=== PATIENT | female | born 1965 | race Caucasian/White ===

== ENCOUNTER 2017-04-19 00:31 | Observation (INO) ==
--- NOTE | 2017-04-19 00:43 | Emergency Department Note ---
Disposition Clinical Impression: NSTEMI (non-ST elevated myocardial infarction), Cough Disposition: Admitted As Inpatient Condition: Fair General Adult HPI - General Chief complaint: ED Shortness of Breath/Dyspnea Stated complaint: COUGH Time Seen by Provider: 04/19/17 00:37 Source: patient, family Limitations: no limitations - History of Present Illness Pain Scale: 6 - Related Data Allergies Allergy/AdvReac Type Severity Reaction Status Date / Time Amoxicillin [From Augmentin] Allergy Hives Verified 04/19/17 00:32 clavulanic acid Allergy Hives Verified 04/19/17 00:32 [From Augmentin] Past Medical History - Past Medical History Medical history: Reports: diabetes, hyperlipidemia, hypertension, thyroid disease, other Psychiatric history: Reports: anxiety, depression 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 - Social History Smoking Status: Current some day smoker Smokeless Tobacco Status: No Alcohol use: Reports: occasionally Drug use: Reports: none Physical Exam - General Limitations: no limitations General appearance: alert, in no apparent distress Course Vital Signs Temperature 99.4 F 04/19/17 00:33 Pulse Rate 80 04/19/17 00:33 Respiratory Rate 18 04/19/17 00:33 Blood Pressure 159/91 04/19/17 00:33 O2 Sat by Pulse Oximetry 94 04/19/17 00:33 Temperature 99.4 F 04/19/17 00:33 Pulse Rate 63 04/19/17 03:07 Respiratory Rate 15 04/19/17 03:07 Blood Pressure 146/83 04/19/17 03:07 O2 Sat by Pulse Oximetry 94 04/19/17 03:07 Oxygen Delivery Oxygen Delivery Room Air Medical Decision Making - Lab Data Result diagrams: 04/19/17 00:50 04/19/17 00:50 Lab Results 04/19/17 04/19/17 04/19/17 Range/Units 00:50 00:50 00:50 WBC 11.7 H (4.3-11.1) K/mcL RBC 3.85 (3.82-4.97) M/mcL Hgb 11.6 (11.5-15.4) g/dL Hct 36.2 (35.3-44.9) % MCV 94.0 (83.0-100.0) fL MCH 30.1 (28.0-33.3) pg MCHC 32.0 (31.6-35.5) g/dL RDW 12.9 (11.5-14.5) % Plt Count 299 (140-400) K/mcL MPV 11.3 (9.4-12.4) fL Immature Gran % 0.5 (0-4) % Seg Neutrophils % 63.3 % Lymphocytes % 22.1 % Monocytes % 7.3 % Eosinophils % 6.3 % Basophils % 0.5 % Neutrophils # 7.4 (1.6-8.9) K/mcL Lymphocytes # 2.6 (0.6-4.6) K/mcL Monocytes # 0.9 (0.0-1.3) K/mcL Eosinophils # 0.7 H (0.0-0.6) K/mcL Basophils # 0.1 (0.0-0.2) K/mcL PT (9.4-12.1) Seconds INR APTT (26.0-36.0) Seconds Sodium 137 (136-145) mEq/L Potassium 3.6 (3.5-5.1) mEq/L Chloride 102 (98-107) mEq/L Carbon Dioxide 26 (23-29) mEq/L BUN 10 (6-20) mg/dL Creatinine 0.72 (0.60-1.20) mg/dL Est GFR ( Amer) > 60 (> 60) Est GFR (Non-Af Amer) > 60 (> 60) BUN/Creatinine Ratio 14 (6-26) Glucose 196 H (70-105) mg/dL Calculated Osmolality 288 (280-300) Calcium 9.0 (8.6-10.3) mg/dL Total Bilirubin 0.2 L (0.3-1.0) mg/dL AST 19 (13-39) Units/L ALT 20 (7-52) Units/L Alkaline Phosphatase 76 (34-104) Units/L Troponin I 0.09 H* (< 0.04) ng/mL B-Natriuretic Peptide 59 (Less than 100) pg/mL Serum Total Protein 6.5 (6.4-8.9) g/dL Albumin 3.7 (3.5-5.7) g/dL Globulin 2.8 (2.4-3.5) g/dL Albumin/Globulin Ratio 1.3 (1.1-2.2) 03/09/18 Range/Units 00:52 WBC (4.3-11.1) K/mcL RBC (3.82-4.97) M/mcL Hgb (11.5-15.4) g/dL Hct (35.3-44.9) % MCV (83.0-100.0) fL MCH (28.0-33.3) pg MCHC (31.6-35.5) g/dL RDW (11.5-14.5) % Plt Count (140-400) K/mcL MPV (9.4-12.4) fL Immature Gran % (0-4) % Seg Neutrophils % % Lymphocytes % % Monocytes % % Eosinophils % % Basophils % % Neutrophils # (1.6-8.9) K/mcL Lymphocytes # (0.6-4.6) K/mcL Monocytes # (0.0-1.3) K/mcL Eosinophils # (0.0-0.6) K/mcL Basophils # (0.0-0.2) K/mcL PT 10.2 (9.4-12.1) Seconds INR 1.0 APTT 35.1 (26.0-36.0) Seconds Sodium (136-145) mEq/L Potassium (3.5-5.1) mEq/L Chloride (98-107) mEq/L Carbon Dioxide (23-29) mEq/L BUN (6-20) mg/dL Creatinine (0.60-1.20) mg/dL Est GFR ( Amer) (> 60) Est GFR (Non-Af Amer) (> 60) BUN/Creatinine Ratio (6-26) Glucose (70-105) mg/dL Calculated Osmolality (280-300) Calcium (8.6-10.3) mg/dL Total Bilirubin (0.3-1.0) mg/dL AST (13-39) Units/L ALT (7-52) Units/L Alkaline Phosphatase (34-104) Units/L Troponin I (< 0.04) ng/mL B-Natriuretic Peptide (Less than 100) pg/mL Serum Total Protein (6.4-8.9) g/dL Albumin (3.5-5.7) g/dL Globulin (2.4-3.5) g/dL Albumin/Globulin Ratio (1.1-2.2) Critical Care Time Critical Care Time: Yes Total Critical Care Time: 30 Attestation: The high probability of a clinically significant, sudden or life threatening deterioration of the [] system(s) required my full and direct attention, intervention and personal management. The aggregate critical care time was [] minutes. This time is in addition to time spent performing reported procedures but includes the following: [] Data Review and interpretation [] Patient assessment and monitoring of vital signs [] Documentation [] Medication orders and management Attestation Statement - Attestation Attestation: I examined this patient and my medical decision-making was reviewed with the Resident Physician. I agree with the documented findings, disposition and treatment plan as described except to the extent set forth below. [id number] time provided Patient anxious and crying upon arrival. She complains of cough and dyspnea. Triage note and vitals reviewed by me. Patient evaluated in conjunction with the resident physician
[2017-04-19 01:50] LABS: Basophils # 0.1 K/mcL (0.0-0.2); Basophils % 0.5 %; Eosinophils # 0.7 K/mcL (0.0-0.6); Eosinophils % 6.3 %; Hematocrit 36.2 % (35.3-44.9); Hemoglobin 11.6 g/dL (11.5-15.4); Immature Granulocytes % 0.5 % (0-4); Lymphocytes # 2.6 K/mcL (0.6-4.6); Lymphocytes % 22.1 %; Mean Corpuscular Hemoglobin 30.1 pg (28.0-33.3); Mean Platelet Volume 11.3 fL (9.4-12.4); Monocytes # 0.9 K/mcL (0.0-1.3); Monocytes % 7.3 %; Neutrophils # 7.4 K/mcL (1.6-8.9); Platelet Count 299 K/mcL (140-400); Red Blood Count 3.85 M/mcL (3.82-4.97); Red Cell Distribution Width 12.9 % (11.5-14.5); Segmented Neutrophils % 63.3 %
--- NOTE | 2017-04-19 02:00 | Emergency Department Note ---
Disposition Clinical Impression: NSTEMI (non-ST elevated myocardial infarction), Cough Disposition: Admitted As Inpatient Condition: Fair Time of Disposition: 03:05 General Adult HPI - General Chief complaint: ED Shortness of Breath/Dyspnea Stated complaint: COUGH Time Seen by Provider: 04/19/17 00:37 Source: patient, family Mode of arrival: ambulatory Limitations: no limitations Nursing Notes Reviewed: Yes Vital Signs Reviewed: Yes - History of Present Illness HPI Narrative: 51-year-old female with significant past medical history of diabetes, hypertension and hypercholesterolemia presenting to the emergency department complaining of cough and right-sided chest pain. Patient states cough started approximately one week ago. She was seen by her primary care physician who gave her Bactrim. Patient states this evening she started having increased shortness of breath and right-sided chest pain that radiated down her arm. She describes nausea but denies vomiting or diaphoresis. Patient has no significant cardiac history. Has never had cardiac workup. Pain Scale: 6 - Related Data Allergies Allergy/AdvReac Type Severity Reaction Status Date / Time Amoxicillin [From Augmentin] Allergy Hives Verified 04/19/17 00:32 clavulanic acid Allergy Hives Verified 04/19/17 00:32 [From Augmentin] All systems ED: reviewed and negative except as stated. Cardiovascular: Reports: chest pain Respiratory: Reports: cough, dyspnea Past Medical History - Past Medical History Attestation: Yes The following information was validated with the patient. 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 Absent: scleral icterus, conjunctival injection - ENT ENT exam: normal exam, mucous membranes moist - Neck Neck exam: Present: normal inspection, full ROM. Absent: tenderness, meningismus - Chest Chest inspection: Present: normal inspection, symmetric chest wall rise. Absent : tenderness, rash - Respiratory Respiratory exam: Present: normal lung sounds bilaterally. Absent: respiratory distress, wheezes - Cardiovascular Cardiovascular exam: Present: regular rate, normal rhythm, normal heart sounds - Abdominal Exam Abdominal exam: Present: soft, Non-Tender. Absent: distention, guarding, rebound - Extremities Exam Extremities exam: Present: normal inspection, full ROM - Neurological Exam Neurological exam: Present: alert, oriented X3 - Psychiatric Psychiatric exam: Present: normal affect, normal mood - Skin Skin exam: Present: warm, intact Course Course Narrative: 51-year-old female with no significant past medical history presenting to the ED with chief complaint of cough and right-sided chest pain. Patient is alert and oriented 3 in the room and stable vital signs at this time. Patient tearful on examination. Physical exam within normal limits. We will perform chest pain workup including CBC and BMP, troponin, EKG, chest x-ray. Disposition pending results. Patient agrees to this plan. - Reevaluation(s) Reevaluation #1: Patient's troponin elevated at 0.09. All other lab work within normal limits. Chest x-ray shows mild pulmonary edema. We will obtain a PT/INR, PTT and started patient on ACS protocol heparin. Patient is alert and oriented 3 and with stable vital signs at this time. We will plan to admit the patient. I spoke with the hospitalist on-call Dr. Hung who agrees to accept the patient at this time. Vital Signs Temperature 99.4 F 04/19/17 00:33 Pulse Rate 80 04/19/17 00:33 Respiratory Rate 18 04/19/17 00:33 Blood Pressure 159/91 04/19/17 00:33 O2 Sat by Pulse Oximetry 94 04/19/17 00:33 Temperature 99.4 F 04/19/17 00:33 Pulse Rate 70 04/19/17 02:19 Respiratory Rate 17 04/19/17 02:19 Blood Pressure 121/72 04/19/17 02:19 O2 Sat by Pulse Oximetry 92 04/19/17 02:19 Oxygen Delivery Oxygen Delivery Room Air Medical Decision Making - Lab Data Result diagrams: 04/19/17 00:50 04/19/17 00:50 Lab Results 04/19/17 04/19/17 04/19/17 Range/Units 00:50 00:50 00:50 WBC 11.7 H (4.3-11.1) K/mcL RBC 3.85 (3.82-4.97) M/mcL Hgb 11.6 (11.5-15.4) g/dL Hct 36.2 (35.3-44.9) % MCV 94.0 (83.0-100.0) fL MCH 30.1 (28.0-33.3) pg MCHC 32.0 (31.6-35.5) g/dL RDW 12.9 (11.5-14.5) % Plt Count 299 (140-400) K/mcL MPV 11.3 (9.4-12.4) fL Immature Gran % 0.5 (0-4) % Seg Neutrophils % 63.3 % Lymphocytes % 22.1 % Monocytes % 7.3 % Eosinophils % 6.3 % Basophils % 0.5 % Neutrophils # 7.4 (1.6-8.9) K/mcL Lymphocytes # 2.6 (0.6-4.6) K/mcL Monocytes # 0.9 (0.0-1.3) K/mcL Eosinophils # 0.7 H (0.0-0.6) K/mcL Basophils # 0.1 (0.0-0.2) K/mcL PT (9.4-12.1) Seconds INR APTT (26.0-36.0) Seconds Sodium 137 (136-145) mEq/L Potassium 3.6 (3.5-5.1) mEq/L Chloride 102 (98-107) mEq/L Carbon Dioxide 26 (23-29) mEq/L BUN 10 (6-20) mg/dL Creatinine 0.72 (0.60-1.20) mg/dL Est GFR ( Amer) > 60 (> 60) Est GFR (Non-Af Amer) > 60 (> 60) BUN/Creatinine Ratio 14 (6-26) Glucose 196 H (70-105) mg/dL Calculated Osmolality 288 (280-300) Calcium 9.0 (8.6-10.3) mg/dL Total Bilirubin 0.2 L (0.3-1.0) mg/dL AST 19 (13-39) Units/L ALT 20 (7-52) Units/L Alkaline Phosphatase 76 (34-104) Units/L Troponin I 0.09 H* (< 0.04) ng/mL B-Natriuretic Peptide 59 (Less than 100) pg/mL Serum Total Protein 6.5 (6.4-8.9) g/dL Albumin 3.7 (3.5-5.7) g/dL Globulin 2.8 (2.4-3.5) g/dL Albumin/Globulin Ratio 1.3 (1.1-2.2) 04/19/17 Range/Units 00:52 WBC (4.3-11.1) K/mcL RBC (3.82-4.97) M/mcL Hgb (11.5-15.4) g/dL Hct (35.3-44.9) % MCV (83.0-100.0) fL MCH (28.0-33.3) pg MCHC (31.6-35.5) g/dL RDW (11.5-14.5) % Plt Count (140-400) K/mcL MPV (9.4-12.4) fL Immature Gran % (0-4) % Seg Neutrophils % % Lymphocytes % % Monocytes % % Eosinophils % % Basophils % % Neutrophils # (1.6-8.9) K/mcL Lymphocytes # (0.6-4.6) K/mcL Monocytes # (0.0-1.3) K/mcL Eosinophils # (0.0-0.6) K/mcL Basophils # (0.0-0.2) K/mcL PT 10.2 (9.4-12.1) Seconds INR 1.0 APTT 35.1 (26.0-36.0) Seconds Sodium (136-145) mEq/L Potassium (3.5-5.1) mEq/L Chloride (98-107) mEq/L Carbon Dioxide (23-29) mEq/L BUN (6-20) mg/dL Creatinine (0.60-1.20) mg/dL Est GFR ( Amer) (> 60) Est GFR (Non-Af Amer) (> 60) BUN/Creatinine Ratio (6-26) Glucose (70-105) mg/dL Calculated Osmolality (280-300) Calcium (8.6-10.3) mg/dL Total Bilirubin (0.3-1.0) mg/dL AST (13-39) Units/L ALT (7-52) Units/L Alkaline Phosphatase (34-104) Units/L Troponin I (< 0.04) ng/mL B-Natriuretic Peptide (Less than 100) pg/mL Serum Total Protein (6.4-8.9) g/dL Albumin (3.5-5.7) g/dL Globulin (2.4-3.5) g/dL Albumin/Globulin Ratio (1.1-2.2) - EKG Data EKG #1 EKG attestation: Yes I reviewed and interpreted this EKG. EKG results narrative: Sinus rhythm. 72 bpm. GA interval 151, QRS 96, QTC 405. No signs of acute ST segment elevation or ischemia noted.
[2017-04-19 02:13] LABS: Troponin I 0.09 ng/mL (< 0.04)
[2017-04-19] MEDS ORDERED: *HR* Heparin 5,000 UNIT/ML VIAL IVP PRN ×2 (02:13)
[2017-04-19] MEDS ORDERED: *HR* Heparin 5,000 UNIT/ML VIAL IVP ONE (02:13)
[2017-04-19] MEDS ORDERED: Heparin 25,000 UNIT/500 ML D5W 25,000 UNIT/500 ML BAG IVC SCH (02:15)
[2017-04-19 02:17] LABS: Alanine Aminotransferase 20 Units/L (7-52); Albumin 3.7 g/dL (3.5-5.7); Albumin/Globulin Ratio 1.3 (1.1-2.2); Alkaline Phosphatase 76 Units/L (34-104); Aspartate Amino Transferase 19 Units/L (13-39); BUN/Creatinine Ratio 14 (6-26); Bilirubin,Total 0.2 mg/dL (0.3-1.0); Blood Urea Nitrogen 10 mg/dL (6-20); Carbon Dioxide 26 mEq/L (23-29); Chloride 102 mEq/L (98-107); Globulin 2.8 g/dL (2.4-3.5); Glucose 196 mg/dL (70-105); Osmolality,Calculated 288 (280-300); Potassium 3.6 mEq/L (3.5-5.1); Sodium 137 mEq/L (136-145); Total Protein 6.5 g/dL (6.4-8.9); eGFR For African Americans > 60 (> 60); eGFR For Non-African Americans > 60 (> 60)
[2017-04-19 02:31] LABS: Prothrombin Time 10.2 Seconds (9.4-12.1)
[2017-04-19 02:34] LABS: Activated Partial Thrombo Time 35.1 Seconds (26.0-36.0)
[2017-04-19] MEDS ORDERED: Aspirin 325 MG TABLET PO ONE (03:44)
[2017-04-19] MEDS ORDERED: D5% in Water 1,000 ML IVC PRN (05:26)
[2017-04-19] MEDS ORDERED: Naloxone 0.4 MG/ML INJ IVP PRN (05:26)
[2017-04-19] MEDS ORDERED: Ipratropium/Albuterol Neb 3 ML IH PRN (05:26)
[2017-04-19] MEDS ORDERED: Dextrose Gel 15 GM/37.5 ML TUBE PO PRN ×2 (05:26)
[2017-04-19] MEDS ORDERED: *HR* HYDROcodone/Acet 5/325 mg TABLET PO PRN (05:26)
[2017-04-19] MEDS ORDERED: *HR* Dextrose 50 % in Water (Syg) 50 ML SYRINGE IVP PRN (05:26)
--- NOTE | 2017-04-19 05:39 | Internal Med History&Physical ---
Date of Encounter: 04/19/17 Time of Encounter: 04:30 Assessment and Plan (1) LRTI (lower respiratory tract infection) Current visit: Yes Status: Acute 1. Suspect flu-like illness followed by bronchitis vs early pneumonia. 2. Blood cultures ordered per my request. 3. Will check for Influenza. 4. Will start IV antibiotics and aerosols PRN. 5. Oxygen as needed. (2) NSTEMI (non-ST elevated myocardial infarction) Current visit: Yes Status: Acute 1. Patient on heparin gtt. 2. Cycle troponins and EKGs. 3. Will order ECHO and consult Cardiology to assist in cardiac evaluation. 4. Will order CTA chest to rule out PE. (3) Type 2 diabetes mellitus Current visit: Yes Status: Acute 1. Need to verify home meds. 2. Will place on SSI and adjust dosing per glucose readings. 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 Heparin drip as above. Internal Medicine - H&P: HPI Chief complaint: cough; fever; chest pain Admitted From: Emergency Dept Plans for Post Hospital Care: Home History of present illness: Ms. Bustamante is a 51 year old female who presents with complaints of cough, subjective fevers, body aches, nausea, vomiting, headache, and occasional diarrhea for the last 7 days. She then developed chest pain over the last 24 hours, which prompted her to come to the ER. Workup in the ER was negative except for positive troponin and chest x-ray concerning for pulmonary edema. She was admitted to the hospitalist service for concerns of a non-STEMI. Upon my assessment of the patient, she confirmed the above history. Additionally, she had the prototypical appearance of someone who is suffering from a flulike illness. She states she feels like she has had the flu last week. Her biggest complaint is the harsh cough she has been having along with the pleuritic-type chest pain, fatigue, body aches, and lack of sleep. She is diabetic and has history of hypertension and high cholesterol. She therefore has risk factors for cardiac disease. However, her history suggests more of a viral and/or bronchopneumonic process now. Patient is also a smoker, but patient denies any history of chronic lung disease. Patient has yet to have blood cultures obtained as I requested from the ER. Additionally, I will order influenza testing as well. Nonethelessl, we will continue with cardiac workup and evaluation. Patient denies any history of blood clots in legs or chest. However, she does give a significant history of pleuritic-type chest pain as well as with deep inspiration. I suspect this is pleurisy from either flulike illness or pneumonia. Nonetheless, I am going to scan her chest to rule out PE. Past Med Surg Social Fam HX - Past Medical History Attestation: Yes The following information was validated with the patient. Source: patient, old records reviewed Medical history: diabetes, hyperlipidemia, hypertension, thyroid disease, other Psychiatric history: anxiety, depression - Past Surgical History Surgical History: no surgical history - Social History Smoking Status: Current some day smoker Smokeless Tobacco Status: No Alcohol use: occasionally Drug use: none Current living situation: Home, With Family Activity Level: Independent ambulation Recent Out of Country Travel Within the Last 8 Weeks: No - Family History Mother Living Status: Still Living Hx Family Cardiac Disorders: Yes Hx Family Respiratory Disorders: Yes Father Living Status: Internal Medicine - H&P: Meds 3 Allergy/AdvReac Type Severity Reaction Status Date / Time Amoxicillin [From Augmentin] Allergy Hives Verified 04/19/17 00:32 clavulanic acid Allergy Hives Verified 04/19/17 00:32 [From Augmentin] - Constitutional Constitutional: chills, fatigue, fever(s), lethargy, no night sweats - EENT Eyes: no blurry vision, no change in vision Ears: no ear pain, no tinnitus Nose, mouth and throat: nasal congestion, sore throat, no sinus pressure - Cardiovascular Cardiovascular ROS IM: chest pain (pleuritic), dyspnea, dyspnea on exertion, no edema, no palpitations, no paroxysmal nocturnal dyspnea, no syncope - Respiratory Respiratory: cough, dyspnea, dyspnea on exertion, wheezing, pain on inspiration , chest congestion, pain with cough, no hemoptysis, no excessive phlegm production, no change in phlegm color - Gastrointestinal Gastrointestinal: diarrhea, nausea, vomiting, no abdominal pain, no hematemesis , no hematochezia, no melena - Genitourinary Genitourinary: no dysuria, no flank pain, no hematuria - Musculoskeletal Musculoskeletal ROS IM: muscle cramps, myalgias, no arthralgias, no back pain - Integumentary Integumentary IM: no rash, no jaundice - Neurological Neurological ROS: no dizziness, no focal weakness, no frequent falls, no headache(s) - Psychiatric Psychiatric: no anxiety, no depression - Endocrine Endocrine IM: no polydipsia, no polyuria - Hematologic/Lymphatic Hematologic/Lymphatic: no easy bruising, no lymphadenopathy - Allergic/Immunologic Allergic/Immunologic: wheezing, no GI upset with certain foods - Constitutional Vitals: Temp Pulse Resp BP Pulse Ox 98.5 F 58 18 115/75 94 04/19/17 04:24 04/19/17 04:24 04/19/17 04:24 04/19/17 04:24 04/19/17 04:24 General appearance: Present: cooperative, mild distress, A&O X 3, pleasant, answers questions appropriately - Head Head exam: Present: normal inspection - Eye Eye exam: Present: EOMI, PERRL. Absent: scleral icterus Pupils: Present: normal accommodation - ENT ENT exam: Present: mucous membranes dry, normal exam Additional comments: congested nares - Neck Neck exam general surgery: Present: full ROM, supple. Absent: lymphadenopathy, tenderness, nuchal rigidity, thyromegaly - Respiratory Respiratory exam: Present: accessory muscle use, chest wall tenderness, decreased breath sounds, prolonged expiratory phase, respiratory distress, rhonchi, wheezes (rare), tachypnea. Absent: rales, stridor - Cardiovascular Cardiovascular exam: Present: distant heart sounds, +S1, +S2. Absent: diastolic murmur, systolic murmur - GI/Abdominal GI/Abdominal exam: Present: normal bowel sounds, soft. Absent: hepatomegaly, mass, splenomegaly, tenderness - Extremities Exam Extremities exam: Present: full ROM, normal capillary refill, warm, radial pulses palpable and symmetrical. Absent: calf tenderness, joint swelling, pedal edema, tenderness - Back Exam Back exam: Present: normal inspection. Absent: CVA tenderness (L), CVA tenderness (R) - Neurological Exam Neurological exam: Present: alert, CN II-XII intact, oriented X3, no focal deficits, strengths equal and symetr throughout - Psychiatric Psychiatric exam: Present: normal affect, normal mood - Skin Skin exam: Present: dry, warm. Absent: rash Internal Med - H&P Results - Labs CBC & Chem 7: 04/19/17 00:50 04/19/17 00:50 - EKG Data -: EKG Interpreted by Myself - EKG Data Prior EKG available for review: no EKG comments: 04/19/17 05:46 NSR; no acute changes - Diagnostic Studies Chest x-ray Status: image reviewed by me (negative in my opinin; disagree withradilogy's rading of pulmonary edema) - VTE Reasons for not Prescribing Prophylaxis: Not indicated-Anticoagulated or INR therapeutic
[2017-04-19] MEDS: 0.9 % Sodium Chloride w KCl 20 MEQ/1,000 ML MLS IVC SCH ×2 (06:28→16:53)
[2017-04-19] MEDS: Insulin LISPRO 300 UNITS/3 ML VIAL SQ SCH ×3 (08:22→17:40)
[2017-04-19 09:32] LABS: Hemoglobin A1C 7.3 %
[2017-04-19] MEDS: Benzonatate 100 MG CAPSULE PO PRN ×3 (09:40→21:22)
[2017-04-19 09:56] LABS: Adenovirus Not Detected (Not Detect); Bordetella Pertussis Not Detected (Not Detect); Chlamydophila pneumoniae Not Detected (Not Detect); Coronavirus 229E Not Detected (Not Detect); Coronavirus HKU1 ***DETECTED*** (Not Detect); Coronavirus NL63 Not Detected (Not Detect); Coronavirus OC43 Not Detected (Not Detect); Human Metapneumovirus Not Detected (Not Detect); Human Rhinovirus/Enterovirus ***DETECTED*** (Not Detect); Influenza A Subtype 2009 H1 Not Detected (Not Detect); Influenza A Untypeable Not Detected (Not Detect); Influenza B Not Detected (Not Detect); Mycoplasma pneumoniae Not Detected (Not Detect); Parainfluenza Virus 1 Not Detected (Not Detect); Parainfluenza Virus 2 Not Detected (Not Detect); Parainfluenza Virus 3 Not Detected (Not Detect); Parainfluenza Virus 4 Not Detected (Not Detect); Respiratory Syncytial Virus Not Detected (Not Detect)
--- NOTE | 2017-04-19 11:17 | Cardiology Consult Note ---
<Melissa Vanegas - Last Filed: 04/19/17 11:20> Date of Encounter: 04/19/17 Time of Encounter: 10:00 Assessment and Plan (1) LRTI (lower respiratory tract infection) Current Visit: Yes Status: Acute Per cardiology: -Admitted with respiratory tract infection vs. possible pneumonia. -Management per primary service. (2) Elevated troponin Current Visit: Yes Status: Acute Per cardiology: -Troponin 0.09, 0.09 in the setting of respiratory infection vs pneumonia. -Admits to chest pain while coughing. -Denies chest pain at rest, denies exertional chest pain. -ECG with no acute ischemic changes. -TTE pending -ON heparin drip, -DO not suspect NSTEMI, suspect demand ischemia related to above. NO cardiac rehab consult warranted. -WIll start asa, beta pamela, statin (takes pravastatin at home sub to simvastatin inpatient). -Will stop heparin drip. -Anticipate cardiology sign off if no significant findings on TTE. Discussion w patient/family: The assessment and plan as outlined above was discussed with the patient who expressed understanding and agreement. All questions were answered. Thank you for involving us in the care of your patient. Please call with any questions. Discussed and reviewed with Dr.John Winter. History of Present Illness Consult date: 04/19/17 Requesting physician: Marvel Hung Consult reason: elevated troponin Chief complaint: cough, shortness of breath History of present illness: Ms. Bustamante is a 51 year old female with a relevant past medical history of DM, HTN , hyperlipidemia. Patient presented to [facility] with complaints of cough and shortness of breath. Patient also reported chest pain while coughing. Denies exertional chest pain. Patient reports prior to onset of cough, did not have any chest pain, shortness of breath, or fatigue. Denies current chest pain. Past Med Surg Social Fam HX - Past Medical History Attestation: Yes The following information was validated with the patient. Source: patient, old records reviewed Medical history: diabetes, hyperlipidemia, hypertension, thyroid disease, other Psychiatric history: anxiety, depression - Past Surgical History Surgical History: no surgical history - Social History Smoking Status: Current some day smoker Smokeless Tobacco Status: No Alcohol use: occasionally Drug use: none - Family History Mother Living Status: Still Living Hx Family Cardiac Disorders: Yes Hx Family Respiratory Disorders: Yes Father Living Status: Medications and Allergies Aspirin [Lo-Dose Aspirin EC] 81 mg PO DAILY 04/19/17 [History] Citalopram [CeleXA] 1.5 tab PO DAILY 04/19/17 [History] Gabapentin [Neurontin] 600 mg PO DAILY 04/19/17 [History] Levothyroxine [Synthroid] 50 mcg PO QAM 04/19/17 [History] Lisinopril-HCTZ 20-12.5 [Prinzide 20-12.5] 1 tab PO DAILY 04/19/17 [History] Metformin HCl [Glucophage] 1,000 mg PO BID 04/19/17 [History] Multivitamin [One Daily Multivitamin] 1 tab PO DAILY 04/19/17 [History] Omeprazole [PriLOSEC] 20 mg PO DAILY 04/19/17 [History] Pravastatin Sodium [Pravachol] 80 mg PO HS 04/19/17 [History] Sulfamethoxazole/Trimeth DS [Bactrim DS] 1 tab PO BID 04/19/17 [History] clonazePAM [Klonopin] 0.5 mg PO BID PRN 04/19/17 [History] glipiZIDE [Glipizide] 10 mg PO DAILY 04/19/17 [History] 3 Allergy/AdvReac Type Severity Reaction Status Date / Time Amoxicillin [From Augmentin] Allergy Hives Verified 04/19/17 11:37 clavulanic acid Allergy Hives Verified 04/19/17 11:37 [From Augmentin] All Systems Review: The remainder of the systems were reviewed and are negative - Cardiovascular Cardiovascular: as per HPI, dyspnea at rest, dyspnea on exertion - Respiratory Respiratory: cough Physical Examination Vital Signs, Last 4 Hours Temp Pulse Resp BP Pulse Ox 04/19/17 11:05 98.1 F 66 16 131/81 92 04/19/17 09:50 93 04/19/17 08:06 97.4 F L 62 16 113/75 93 General: Conversant, No Apparent Distress HEENT: Atraumatic, Normocephaly, Mucus Membranes Moist Neck: No JVD, Normal carotid pulses Cardiac: Reg Rate and Rhythm, Normal S1 and S2, No Murmur Lungs: Other (Lung sounds diminished throughout. ) Neuro: Alert and responsive, No focal deficits noted Abdomen: Soft, Non-Tender Skin: No rashes noted on visualized skin Musculoskeletal: No Chest Wall Tenderness Extremities: No Clubbing, No Cyanosis, No Edema, Normal Pulses Results 04/19/17 00:50 04/19/17 00:50 Lab Results Impressions Chest X-Ray 04/19/17 00:53 IMPRESSION: Pulmonary edema. D/ / García Roberts MD / García Roberts MD Interpreting Provider: García Roberts MD Chest CTA 04/19/17 08:30 IMPRESSION: Negative CTA for pulmonary embolus. Nodular areas of consolidation/airspace disease predominantly in the right upper and middle lobes most compatible with an inflammatory/infectious process/pneumonia with some benign reactive mediastinal and hilar lymph nodes. Follow-up chest radiographs to document resolution of disease are warranted. Bilateral adrenal masses largest seen on the right measures 4.1 cm likely reflecting benign adrenal adenomas. Nonemergent MRI is recommended for complete assessment. Fatty liver. D/ / 04/19/2017 09:06:25 Bryan Vigil MD / [facility] Interpreting Provider: Bryan Vigil MD Active Medications Acetaminophen (Tylenol) 650 mg PO Q6HR PRN PRN Reason: Mild Pain/Fever Stop: 10/19/17 05:27 Hydrocodone Bitart/Acetaminophen ([place] 5-325 Mg) 1 tab PO Q6HR PRN PRN Reason: Moderate Pain Stop: 10/19/17 05:27 Albuterol/Ipratropium (Duoneb) 3 ml IH [id number] PRN PRN Reason: Shortness Of Breath/Wheezing Stop: 10/19/17 05:27 Aspirin (Aspirin Ec) 81 mg PO DAILY RC Stop: 10/19/17 11:31 Benzonatate (Tessalon) 100 mg PO TID PRN PRN Reason: Cough Stop: 10/19/17 09:34 Last Admin: 04/19/17 09:40 Dose: 100 mg Dextrose/Water (Dextrose 50% (Syg)) 25 ml IVP AD PRN PRN Reason: Hypoglycemia Stop: 10/19/17 05:27 Glucagon (Glucagen) 1 mg IM ONCE PRN PRN Reason: Hypoglycemia Stop: 10/19/17 05:27 Glucose (Gluctose) 15 gm PO ONCE PRN PRN Reason: Hypoglycemia Stop: 10/19/17 05:27 Glucose (Gluctose) 30 gm PO ONCE PRN PRN Reason: Hypoglycemia Stop: 10/19/17 05:27 Heparin Sodium (Porcine) (Heparin) 4,000 unit IVP Q6HR PRN PRN Reason: SEE COMMENTS Stop: 10/19/17 02:14 Heparin Sodium (Porcine) (Heparin) 2,000 unit IVP Q6H PRN PRN Reason: SEE COMMENTS Stop: 10/19/17 02:14 Last Admin: 04/19/17 10:00 Dose: 2,000 unit Heparin Sodium/Dextrose (Heparin 25,000 Unit/500 Ml D5w) 25,000 unit in 500 mls @ 20.031 mls/hr IVC .Q24H RC; 9.2 UNIT/KG/HR PRN Reason: Protocol Stop: 10/19/17 02:16 Last Titration: 04/19/17 10:01 Dose: 11.02 unit/kg/hr, 24 mls/hr Potassium Chloride/Sodium Chloride (Kcl 20 Meq In 0.9% Sodium Chloride) 20 meq in 1,000 mls @ 100 mls/hr IVC .Q10H RC Stop: 04/20/17 01:29 Last Admin: 04/19/17 06:28 Dose: 100 mls/hr Dextrose (Dextrose 5%) 1,000 mls @ 100 mls/hr IVC .Q10H PRN PRN Reason: HYPOGLYCEMIA Stop: 10/19/17 05:27 Levofloxacin/Dextrose (Levaquin Premix 750mg/150 Ml) 750 mg in 150 mls @ 100 mls/hr IVPB DAILY RC PRN Reason: Protocol Stop: 10/19/17 09:01 Insulin Human Lispro (Humalog) 0 units SQ TIDAC RC PRN Reason: Protocol Stop: 10/19/17 07:31 Last Admin: 04/19/17 08:22 Dose: Not Given Insulin Human Lispro (Humalog) 0 units SQ HS RC PRN Reason: Protocol Stop: 10/19/17 21:01 Metoprolol Succinate (Toprol Xl) 12.5 mg PO DAILY [facility] Stop: 10/19/17 11:31 Naloxone HCl (Narcan) 0.4 mg IVP Q2MIN PRN PRN Reason: SEE COMMENTS Stop: 10/19/17 05:27 Simvastatin (Zocor) 40 mg PO HS RC PRN Reason: Protocol Stop: 10/19/17 21:01 Laboratory Tests 04/19/17 04/19/17 04/19/17 00:50 00:50 06:22 WBC 11.7 H Hgb 11.6 Creatinine 0.72 Troponin I 0.09 H* 0.09 H* - Imaging and Cardiology Chest Xray: report reviewed Echo: pending - EKG Interpretation EKG results cardiology: personally reviewed (ECG with SR, HR 72.), other ( Telemetry reviewed with average HR previous 12 hours noted to be 64, SR. PVCs and PACs noted.) Consult Discharge Plan - Plan Referrals: Miguelito Cole MD [Primary Care Provider] - <Mario Winter - Last Filed: 04/19/17 13:07> Date of Encounter: 04/19/17 - Attending Attestation I have personally performed a face to face evaluation on this patient. I have reviewed and agree with the care plan. History and Exam by me shows: Abnormal trop. in setting of resp. infection. Doubt ACS. Primary treatment is of the infection. Assessment and Plan Discussion w patient/family: The assessment and plan as outlined above was discussed with the patient and/or family members who expressed understanding and agreement. All questions were answered. Thank you for involving us in the care of your patient. Please call with any questions. History of Present Illness History of present illness: Ms. Bustamante is a 51 year old female All Systems Review: The remainder of the systems were reviewed and are negative Physical Examination Vital Signs, Last 4 Hours Temp Pulse Resp BP Pulse Ox 04/19/17 11:05 98.1 F 66 16 131/81 92 04/19/17 09:50 93 Results 04/19/17 00:50 04/19/17 00:50 Lab Results 04/19/17 04/19/17 06:22 09:07 APTT 45.3 H Troponin I 0.09 H*
[2017-04-19] MEDS: Levofloxacin 750 MG/150 ML 750 MG/150 ML BAG IVPB SCH (11:55)
[2017-04-19] MEDS: Aspirin Enteric Coated 81 MG Tablet PO SCH (13:17)
[2017-04-19] MEDS: Metoprolol XL (24 HR) Succ 25 MG TAB.ER.24H PO SCH (13:17)
[2017-04-19] MEDS: Acetaminophen 325 MG TABLET PO PRN (15:15)
[2017-04-19] MEDS ORDERED: Insulin LISPRO 300 UNITS/3 ML VIAL SQ SCH (21:00)
[2017-04-20 04:14] LABS: Basophils # 0.1 K/mcL (0.0-0.2); Basophils % 0.9 %; Eosinophils # 0.7 K/mcL (0.0-0.6); Eosinophils % 8.5 %; Hematocrit 34.6 % (35.3-44.9); Immature Granulocytes % 0.4 % (0-4); Lymphocytes # 2.3 K/mcL (0.6-4.6); Lymphocytes % 28.8 %; Mean Corpuscular HGB Conc 31.8 g/dL (31.6-35.5); Mean Corpuscular Hemoglobin 30.1 pg (28.0-33.3); Mean Corpuscular Volume 94.8 fL (83.0-100.0); Mean Platelet Volume 11.1 fL (9.4-12.4); Monocytes # 0.8 K/mcL (0.0-1.3); Monocytes % 10.4 %; Neutrophils # 4.1 K/mcL (1.6-8.9); Platelet Count 277 K/mcL (140-400); Red Blood Count 3.65 M/mcL (3.82-4.97); Red Cell Distribution Width 13.2 % (11.5-14.5)
[2017-04-20 04:45] LABS: Alanine Aminotransferase 16 Units/L (7-52); Albumin 3.4 g/dL (3.5-5.7); Albumin/Globulin Ratio 1.4 (1.1-2.2); Alkaline Phosphatase 63 Units/L (34-104); Aspartate Amino Transferase 14 Units/L (13-39); BUN/Creatinine Ratio 15 (6-26); Bilirubin,Total 0.2 mg/dL (0.3-1.0); Blood Urea Nitrogen 12 mg/dL (6-20); Calcium 8.5 mg/dL (8.6-10.3); Carbon Dioxide 27 mEq/L (23-29); Chloride 107 mEq/L (98-107); Chol/HDL Ratio 5.9 (0-4.9); Cholesterol 199 mg/dL (< 200); Globulin 2.5 g/dL (2.4-3.5); Glucose 108 mg/dL (70-105); HDL Cholesterol 34 mg/dL (40-59); LDL Cholesterol,Calculated 124 mg/dL (0-99); Osmolality,Calculated 288 (280-300); Potassium 4.5 mEq/L (3.5-5.1); Sodium 139 mEq/L (136-145); Total Protein 5.9 g/dL (6.4-8.9); Triglycerides 204 mg/dL (< 150); eGFR For African Americans > 60 (> 60); eGFR For Non-African Americans > 60 (> 60)
[2017-04-20] MEDS: Acetaminophen 325 MG TABLET PO PRN ×2 (04:58→09:56)
[2017-04-20] MEDS: Benzonatate 100 MG CAPSULE PO PRN (04:58)
[2017-04-20] MEDS: Insulin LISPRO 300 UNITS/3 ML VIAL SQ SCH ×2 (09:46→11:55)
[2017-04-20] MEDS: Aspirin Enteric Coated 81 MG Tablet PO SCH (09:54)
[2017-04-20] MEDS: Metoprolol XL (24 HR) Succ 25 MG TAB.ER.24H PO SCH (09:54)
[2017-04-20] MEDS: Levofloxacin 750 MG/150 ML 750 MG/150 ML BAG IVPB SCH (09:55)
--- NOTE | 2017-04-20 10:48 | Cardiology Progress Note ---
Date of Encounter: 04/20/17 Time of Encounter: 10:45 Assessment and Plan (1) Elevated troponin Current Visit: Yes Status: Acute Per cardiology: -Troponin 0.09, 0.09, 0.09 in the setting of respiratory infection vs pneumonia. -Of note, positive for coronavirus HKU1 and entero/rhino. -Admits to chest pain while coughing. Denies chest pain overnight. -Denies chest pain at rest, denies exertional chest pain. -ECG with no acute ischemic changes. -TTE pending. -Do not suspect NSTEMI, suspect demand ischemia related to above. NO cardiac rehab consult warranted. -Continue asa, beta pamela, statin (takes pravastatin at home sub to simvastatin inpatient). -TTE still pending. Cardiology signing off. Reconsult PRN or if significant findings on TTE. No outpt follow-up warranted at this time. (2) LRTI (lower respiratory tract infection) Current Visit: Yes Status: Acute Per cardiology: -Admitted with respiratory tract infection vs. possible pneumonia. -Management per primary service. Discussion w patient/family: The assessment and plan as outlined above was discussed with the patient and/or family members who expressed understanding and agreement. All questions were answered. Thank you for involving us in the care of your patient. Please call with any questions. I will discuss all the above with Dr. Mario Winter and make changes as necessary. Subjective Principal diagnosis: LRTI Interval history: Pt denies chest pain overnight. Echo pending. Objective Vital Signs, Last 4 Hours Temp Pulse Resp BP Pulse Ox 04/20/17 10:04 93 04/20/17 08:11 97.8 F 60 16 123/79 93 Vital Signs Temp Pulse Resp BP Pulse Ox 04/20/17 10:04 93 04/20/17 08:11 97.8 F 60 16 123/79 93 04/20/17 03:56 97.9 F 66 16 121/80 93 04/19/17 23:26 98.1 F 70 18 126/79 95 04/19/17 22:36 17 98 04/19/17 18:21 98.4 F 59 18 122/74 96 04/19/17 15:14 97.4 F L 60 16 142/80 93 04/19/17 11:05 98.1 F 66 16 131/81 92 Intake and Output 04/19/17 04/20/17 04/20/17 23:59 07:59 15:59 Intake Total 1600 / 1600 360 / 360 Output Total 1400 / 1400 Balance 1600 / 1600 -1400 / -1400 360 / 360 Intake: IV Fluids 1000 / 1000 KCl 20 mEq in 0.9% Sodium 1000 / 1000 Chloride 20 meq In 1,000 ml @ 100 mls/hr IVC .Q10H RC Rx#: [id number] Oral 600 / 600 360 / 360 Output: Urine 1400 / 1400 Other: Meal Breakfast Percent of Meal Consumed 100% # Voids 2 6 Weight 109 kg Blood Glucose* 185 118 Patient Weight 04/20/17 23:59 Weight 109 kg General: Conversant, No Apparent Distress HEENT: Atraumatic, Normocephaly, Mucus Membranes Moist Neck: No JVD, Normal carotid pulses Cardiac: Reg Rate and Rhythm, Normal S1 and S2, No Murmur Lungs: Other (diminished) Neuro: Alert and responsive, No focal deficits noted Abdomen: Soft, Non-Tender Skin: No rashes noted on visualized skin Musculoskeletal: No Chest Wall Tenderness Extremities: No Clubbing, No Cyanosis, No Edema, Normal Pulses Results 04/20/17 03:34 04/20/17 03:34 Lab Results 04/19/17 04/20/17 04/20/17 13:24 03:34 03:34 WBC 8.1 Hgb 11.0 L Hct 34.6 L Plt Count 277 Sodium 139 Potassium 4.5 Chloride 107 Carbon Dioxide 27 BUN 12 Creatinine 0.79 Glucose 108 H Calcium 8.5 L Magnesium 2.0 Total Bilirubin 0.2 L AST 14 ALT 16 Alkaline Phosphatase 63 Troponin I 0.09 H* Short CBC 04/20/17 Range/Units 03:34 WBC 8.1 (4.3-11.1) K/mcL Hgb 11.0 L (11.5-15.4) g/dL Hct 34.6 L (35.3-44.9) % Plt Count 277 (140-400) K/mcL Neutrophils # 4.1 (1.6-8.9) K/mcL BMP 04/20/17 Range/Units 03:34 Sodium 139 (136-145) mEq/L Potassium 4.5 (3.5-5.1) mEq/L Chloride 107 (98-107) mEq/L Carbon Dioxide 27 (23-29) mEq/L BUN 12 (6-20) mg/dL Creatinine 0.79 (0.60-1.20) mg/dL Glucose 108 H (70-105) mg/dL Calcium 8.5 L (8.6-10.3) mg/dL Cardiac Enzymes 04/19/17 Range/Units 13:24 Troponin I 0.09 H* (< 0.04) ng/mL Liver Function 04/20/17 Range/Units 03:34 Total Bilirubin 0.2 L (0.3-1.0) mg/dL AST 14 (13-39) Units/L ALT 16 (7-52) Units/L Alkaline Phosphatase 63 (34-104) Units/L Albumin 3.4 L (3.5-5.7) g/dL Active Medications Acetaminophen (Tylenol) 650 mg PO Q6HR PRN PRN Reason: Mild Pain/Fever Stop: 10/19/17 05:27 Last Admin: 04/20/17 09:56 Dose: 650 mg Hydrocodone Bitart/Acetaminophen ([place] 5-325 Mg) 1 tab PO Q6HR PRN PRN Reason: Moderate Pain Stop: 10/19/17 05:27 Last Admin: 04/19/17 21:23 Dose: 1 tab Albuterol/Ipratropium (Duoneb) 3 ml IH [id number] PRN PRN Reason: Shortness Of Breath/Wheezing Stop: 10/19/17 05:27 Last Admin: 04/19/17 22:36 Dose: 3 ml Aspirin (Aspirin Ec) 81 mg PO DAILY RC Stop: 10/19/17 11:31 Last Admin: 04/20/17 09:54 Dose: 81 mg Benzonatate (Tessalon) 100 mg PO TID PRN PRN Reason: Cough Stop: 10/19/17 09:34 Last Admin: 04/20/17 04:58 Dose: 100 mg Dextrose/Water (Dextrose 50% (Syg)) 25 ml IVP AD PRN PRN Reason: Hypoglycemia Stop: 10/19/17 05:27 Glucagon (Glucagen) 1 mg IM ONCE PRN PRN Reason: Hypoglycemia Stop: 10/19/17 05:27 Glucose (Gluctose) 15 gm PO ONCE PRN PRN Reason: Hypoglycemia Stop: 10/19/17 05:27 Glucose (Gluctose) 30 gm PO ONCE PRN PRN Reason: Hypoglycemia Stop: 10/19/17 05:27 Dextrose (Dextrose 5%) 1,000 mls @ 100 mls/hr IVC .Q10H PRN PRN Reason: HYPOGLYCEMIA Stop: 10/19/17 05:27 Levofloxacin/Dextrose (Levaquin Premix 750mg/150 Ml) 750 mg in 150 mls @ 100 mls/hr IVPB DAILY RC PRN Reason: Protocol Stop: 10/19/17 09:01 Last Admin: 04/20/17 09:55 Dose: 100 mls/hr Insulin Human Lispro (Humalog) 0 units SQ TIDAC RC PRN Reason: Protocol Stop: 10/19/17 07:31 Last Admin: 04/20/17 09:46 Dose: Not Given Insulin Human Lispro (Humalog) 0 units SQ HS RC PRN Reason: Protocol Stop: 10/19/17 21:01 Last Admin: 04/19/17 20:50 Dose: Not Given Metoprolol Succinate (Toprol Xl) 12.5 mg PO DAILY RC Stop: 10/19/17 11:31 Last Admin: 04/20/17 09:54 Dose: 12.5 mg Naloxone HCl (Narcan) 0.4 mg IVP Q2MIN PRN PRN Reason: SEE COMMENTS Stop: 10/19/17 05:27 Simvastatin (Zocor) 40 mg PO HS RC PRN Reason: Protocol Stop: 10/19/17 21:01 Last Admin: 04/19/17 21:22 Dose: 40 mg - Imaging and Cardiology Echo: pending - EKG Interpretation EKG results cardiology: other (12 hr tele AVG HR 63, SR, no significant pauses or arrhythmias) - VTE Reasons for not Prescribing Prophylaxis: Not indicated-Anticoagulated or INR therapeutic Consult Discharge Plan - Plan Referrals: Miguelito Cole MD [Primary Care Provider] -
[2017-04-20 11:07] VITALS: BP 117/77
--- NOTE | 2017-04-20 11:14 | Discharge Summary ---
- NOTES TO OUTPATIENT PROVIDER Notes to Outpatient Provider: Monitor blood sugars. Date of Encounter: 04/20/17 Time of Encounter: 09:45 - Discharge Diagnosis (1) Elevated troponin Priority: Primary Status: Acute (2) Pneumonia Priority: Primary Status: Acute Qualifiers: Pneumonia type: due to unspecified organism Laterality: right Lung location: unspecified part of lung Qualified Code(s): J18.9 - Pneumonia, unspecified organism (3) Viral bronchitis Priority: Primary Status: Acute (4) Essential hypertension Priority: Secondary Status: Chronic (5) Hypothyroidism Priority: Secondary Status: Chronic Qualifiers: Hypothyroidism type: unspecified Qualified Code(s): E03.9 - Hypothyroidism , unspecified (6) Hyperlipidemia Priority: Secondary Status: Chronic Qualifiers: Hyperlipidemia type: unspecified Qualified Code(s): E78.5 - Hyperlipidemia , unspecified (7) Depression Priority: Secondary Status: Chronic Qualifiers: Depression Type: unspecified Qualified Code(s): F32.9 - Major depressive disorder, single episode, unspecified (8) Tobacco abuse Priority: Secondary Status: Chronic (9) Type 2 diabetes mellitus Priority: Secondary Status: Chronic Qualifiers: Diabetes mellitus mcc insulin use: without mcc use Diabetes mellitus complication status: with hyperglycemia Qualified Code(s): E11.65 - Type 2 diabetes mellitus with hyperglycemia Hospital course: Ms. Bustamante is a 51 year old female with the above medical problems who was admitted with flulike symptoms, cough and chest pain. Chest x-ray showed changes suggestive of pulmonary edema. She was started on empiric IV antibiotics, breathing treatments and supplemental oxygen. She was also noted to have elevated troponin of 0.09 and she was started on anticoagulation with IV heparin drip. CT angiogram of chest was done, which showed no evidence of pulmonary embolism but did show right-sided pneumonia. Blood cultures remained negative, she did not not need supplemental oxygen, continued on IV Levaquin. Cardiology was consulted for elevated troponin, which is thought to be demand ischemia due to underlying infection. Serial troponins remained flat at 0.09. Heparin drip was discontinued. Transthoracic echocardiogram has been ordered, pending which the patient can be discharged if it is normal. She is otherwise medically stable and wishes to be discharged home today. She is noted to have slightly elevated blood sugars, I encouraged to follow up with primary care provider. Hemoglobin A1c noted to be 7.3%. Discharge discussed with: patient - Time Spent with Patient Total time spent providing and/or coordinating discharge services: Greater than 30 minutes (45 min) - Discharge Medications Prescriptions: Benzonatate [Tessalon] 100 mg PO TID PRN #20 capsule PRN Reason: Cough Levofloxacin [Levaquin] 750 mg PO DAILY 5 Days #5 tablet Home Medications: Aspirin [Lo-Dose Aspirin EC] 81 mg PO DAILY 04/19/17 [History] Citalopram [CeleXA] 1.5 tab PO DAILY 04/19/17 [History] Gabapentin [Neurontin] 600 mg PO DAILY 04/19/17 [History] Levothyroxine [Synthroid] 50 mcg PO QAM 04/19/17 [History] Lisinopril-HCTZ 20-12.5 [Prinzide 20-12.5] 1 tab PO DAILY 04/19/17 [History] Metformin HCl [Glucophage] 1,000 mg PO BID 04/19/17 [History] Multivitamin [One Daily Multivitamin] 1 tab PO DAILY 04/19/17 [History] Omeprazole [PriLOSEC] 20 mg PO DAILY 04/19/17 [History] Pravastatin Sodium [Pravachol] 80 mg PO HS 04/19/17 [History] clonazePAM [Klonopin] 0.5 mg PO BID PRN 04/19/17 [History] glipiZIDE [Glipizide] 10 mg PO DAILY 04/19/17 [History] Benzonatate [Tessalon] 100 mg PO TID PRN #20 capsule 04/20/17 [Rx] Levofloxacin [Levaquin] 750 mg PO DAILY 5 Days #5 tablet 04/20/17 [Rx] Allergies/Adverse Reactions: 3 Allergy/AdvReac Type Severity Reaction Status Date / Time Amoxicillin [From Augmentin] Allergy Hives Verified 04/19/17 11:37 clavulanic acid Allergy Hives Verified 04/19/17 11:37 [From Augmentin] Date of admission: 04/19/17 02:51 Primary care physician: Miguelito Cole MD Consults: 04/19/17 05:30 Consult to Physician [CONS] Routine Consulting Provider: Brenda Denny Reason for Consult: elevated troponin Call Completed: No Discharging clinician: Cris Seaman Anticipated date of discharge: 04/20/17 - Constitutional Vitals: Temp Pulse Resp BP Pulse Ox 97.8 F 56 16 117/77 93 04/20/17 11:00 04/20/17 11:00 04/20/17 11:00 04/20/17 11:00 04/20/17 11:00 General appearance: Present: cooperative, A&O X 3, pleasant, answers questions appropriately - Respiratory Respiratory exam: Present: CTAB (faint right basal crackles). Absent: accessory muscle use, rales, rhonchi, wheezes - Cardiovascular Cardiovascular exam: Present: RRR, +S1, +S2. Absent: diastolic murmur, gallop, rubs, systolic murmur - Patient Status Disposition: Home, Self-Care Condition: Fair Functional capacity at discharge: independent ambulation Overall status at discharge: patient is progressing back to baseline - Discharge Instructions Follow Up With: Miguelito Cole MD [Primary Care Provider] - Additional Instructions: F/up with PCP in 1-2 weeks - Diet and Activity Activity: resume usual activities as tolerated Diet: diabetic diet, low fat, low cholesterol, low salt diet - VTE Reasons for not Prescribing Prophylaxis: Not indicated-Anticoagulated or INR therapeutic
--- NOTE | 2017-04-20 12:33 | Electrocardiograph Report ---
[address] [address] Test Date: 2017-04-19 Pat Name: Jacqueline Bustamante Department: 104 Room: 2A Gender: F Transfer Professor: LIANNE : 1965 Requested By: Marvel Hung Order Number: [id number] Reading MD: Mario Winter Measurements Intervals [place] Rate: 72 P: 30 [place]: 151 QRS: 34 QRSD: 96 T: 11 QT: 380 QTc: 405 Interpretive Statements SINUS RHYTHM Electronically Signed On 04-20-2017 12:31:34 EST by Mario Winter
== END 2017-04-20 15:10 | disposition home or self-care (01) ==
LOC: EMEROO 00:31 → 2ANU 00:31
PROVIDERS: ADMIT Pediatrics; ATTEND Internal Medicine